=== PATIENT | male | born 1945 | race Caucasian/White ===

== ENCOUNTER → 2017-02-13 | Outpatient (CLI) | payer OTHER | LOC: BMCIMAGING 12:31 | PROVIDERS: ATTEND Family Medicine | DX: S99.922A Unspecified injury of left foot, initial encounter (principal); X50.9XXA Other and unspecified overexertion or strenuous movements or postures, initial encounter ==

== ENCOUNTER 2018-07-13 02:03 | Emergency (ER) | payer OTHER ==
[2018-07-13] MEDS ORDERED: TRANEXAMIC ACID 1,000 MG/10 ML VIAL ONE (02:43)
--- NOTE | 2018-07-13 02:44 | EDPHY ---
H & P Stated Complaint: nosebleed after scratching x30min, baby ASA, no other thinners Time Seen by Provider: 07/13/18 02:39 HPI/ROS: HPI The patient presents with nose bleed which began about 30 min prior to arrival when he was scratching his nose. Bleeding started abruptly and was brisk he reports without any blood clots. The patient takes a baby aspirin daily. His tried to apply pressure, however bleeding continued so he came to the emergency department. He does not have any prior history of nose bleeds. He does not generally have easy bleeding or bruising.. REVIEW OF SYSTEMS 10 systems were reviewed and negative with the exception of the elements mentioned in the history of present illness. PMHx: Hyperlipidemia, hypertension, prediabetes Soc Hx: Here with his , housed PHYSICAL General Appearance: Alert, no distress Eyes: Pupils equal and round no pallor or injection ENT, Mouth: Mucous membranes moist, left naris with dried blood present with no active bleeding, right naris with no signs of bleeding Respiratory: There are no retractions, lungs are clear to auscultation Cardiovascular: Regular rate and rhythm Gastrointestinal: Abdomen is soft and non-tender, no masses, bowel sounds normal Neurological: A&O, moves all extremities Skin: Warm and dry, no rashes Musculoskeletal: Neck is supple non tender Extremities: symmetrical, full range of motion Psychiatric: Patient is oriented X 3, there is no agitation Source: Patient Exam Limitations: No limitations - Personal History Current Tetanus/Diphtheria Vaccine: Yes Current Tetanus Diphtheria and Acellular Pertussis (TDAP): Yes - Medical/Surgical History Hx Asthma: No Hx Chronic Respiratory Disease: No Hx Diabetes: No Hx Cardiac Disease: No Hx Renal Disease: No Hx Cirrhosis: No Hx Alcoholism: No Hx HIV/AIDS: No Hx Splenectomy or Spleen Trauma: No Other PMH: thyroid, high cholesterol, HTN, type 2 diabetes (pre-diabetes) - Social History Smoking Status: Never smoked Constitutional: Initial Vital Signs Temperature (C) 36.4 C 07/13/18 02:07 Heart Rate 60 07/13/18 02:07 Respiratory Rate 18 07/13/18 02:07 Blood Pressure 150/112 H 07/13/18 02:07 O2 Sat (%) 96 07/13/18 02:07 O2 Delivery Mode Room Air Allergies/Adverse Reactions: No Known Allergies Allergy (Unverified 07/13/18 02:06) Home Medications: Medication Instructions Recorded Aspirin 07/13/18 Lisinopril 07/13/18 SIMVASTATIN 07/13/18 Synthroid 07/13/18 Medical Decision Making Procedures: NOSE BLEED Procedure: Epistaxis control. Indication: nosebleed not controlled by direct pressure. Risks, benefits, alternatives discussed with patient and consent obtained. The left naris was found to be bleeding. The anterior epistaxis was identified. The patient was treated with TXA. Following the procedure the patient was re -examined and the bleeding was well controlled. The patient tolerated the procedure well. The procedure was performed by myself. Differential Diagnosis: 73-year-old male who takes a baby aspirin daily presents with epistaxis which began after scratching his nose. This is lasted for 30 min without any blood clots. Upon arrival to the emergency department, nasal clamp was placed for about 15 min. This caused bleeding to stop nearly completely. I then administered TXA approximately 300 mg intranasally. He had no ongoing bleeding. I suspect he had bleeding from Kiesselbach's plexus, baby aspirin may have exacerbated bleeding. I doubt posterior nosebleed. I have coached him on treatment for this. He will be discharged from the emergency department. - Data Points Medications Given: Discontinued Medications Tranexamic Acid (Cyklokapron) 500 mg TP EDNOW ONE Stop: 07/13/18 02:49 Last Admin: 07/13/18 02:49 Dose: Not Given Departure - Departure Disposition: Home, Routine, Self-Care Clinical Impression: Acute anterior epistaxis Condition: Good Instructions: Nosebleed (ED) Additional Instructions: Please avoid putting anything in your nose or picking her nose. You can use Vaseline on the inside of your nostrils for the next few days. If the bleeding starts again, use Afrin in your nose and put on the nasal clamp for 15 min. If you have any ongoing problems with nosebleeds, you can follow up with the ENT Dr. Redding listed below. You should return to the emergency department if your worse in any way. Referrals: Rex Redding MD [Medical Doctor] - As per Instructions
[2018-07-13] MEDS ORDERED: TRANEXAMIC ACID 1,000 MG/10 ML VIAL TP ONE (02:48)
[2018-07-13 03:03] VITALS: BP 118/68
== END 2018-07-13 03:03 | disposition home or self-care (01) ==
PROC: 3E09XGC Introduction of Other Therapeutic Substance into Nose, External Approach (ICD-10-PCS; principal; 2018-07-13)
DX: R04.0 Epistaxis (principal); I10 Essential (primary) hypertension; E78.5 Hyperlipidemia, unspecified; R73.03 Prediabetes